=== PATIENT | male | born 1995 | race Asian ===

== ENCOUNTER 2020-03-02 15:52 | Emergency (ER) | payer OTHER ==
[~2020-03-02] VITALS: Ht 175.3 cm; Wt 72.7 kg
[2020-03-02 15:53] VITALS: BP 140/90
[2020-03-02] MEDS ORDERED: HYDROCODONE/ACETAMINOPHEN 5-325 MG TABLET PO ONE (16:15)
[2020-03-02] MEDS ORDERED: IBUPROFEN 600 MG TABLET PO ONE (16:15)
[2020-03-02] MEDS ORDERED: PERTUSS(ACELL),DIPH,TET VAC/PF 0.5 ML VIAL IM ONE (16:30)
== END 2020-03-02 16:58 | disposition home or self-care (01) ==
LOC: EMS 15:52
DX: S63.501A Unspecified sprain of right wrist, initial encounter (principal); S60.511A Abrasion of right hand, initial encounter; R03.0 Elevated blood-pressure reading, without diagnosis of hypertension; W01.0XXA Fall on same level from slipping, tripping and stumbling without subsequent striking against object, initial encounter; Y93.89 Activity, other specified; Y92.89 Other specified places as the place of occurrence of the external cause; Y99.8 Other external cause status
CPT/HCPCS: 90471; 90715